=== PATIENT | male | born 1955 | race African-American/Black ===

== ENCOUNTER 2025-05-08 02:58 | Emergency (ER) | payer MEDICAID, MEDICARE ==
[~2025-05-08] VITALS: Ht 170.2 cm; Wt 80.0 kg
[2025-05-08 03:11] VITALS: TEMP 36.6; O2SAT 97
[2025-05-08 03:57] LABS: BASOPHILS % 0.3 % (0.0-2.0); EOSINOPHILS % 1.2 % (0.0-5.0); HEMATOCRIT. 42.7 % (42.0-52.0); HEMOGLOBIN. 13.7 g/dL (14.0-18.0); LYMPHOCYTES % 11.3 % (20.0-50.0); MEAN PLATELET VOLUME 7.3 fl (7.4-10.4); MONOCYTES % 12.6 % (2.0-8.0); NEUTROPHILS % 74.6 % (40.0-76.0); PLATELET 208 x1000/uL (130-400); RED BLOOD CELL COUNT 4.65 mill/uL (4.7-6.1); RED CELL DISTRIBUTION WIDTH 15.8 % (11.6-14.6)
[2025-05-08 04:10] LABS: CREATININE 1.6 mg/dL (0.6-1.3); UREA NITROGEN BLOOD 22.0 mg/dL (9-23)
[2025-05-08 04:12] LABS: TROPONIN I HIGH SENSITIVITY 26 ng/L (3.0-53)
[2025-05-08] MEDS ORDERED: NITROGLYCERIN 0.4MG TABLET SL SL NR (04:15)
[2025-05-08 04:40] VITALS: BP 154/107; PULSE 92; RESP 16; O2SAT 95
[2025-05-08] MEDS ORDERED: ASPIRIN 81MG TABLET PO NR (05:30)
== END 2025-05-08 05:26 | disposition left against medical advice (07) ==
LOC: ER 02:58 → EDBEDREQTM 05:21 → EDBEDREQ 05:21 → ER 05:26 → CMPBEDREQ 05:27
DX: R07.9 Chest pain, unspecified (principal); F14.90 Cocaine use, unspecified, uncomplicated; E78.00 Pure hypercholesterolemia, unspecified; I10 Essential (primary) hypertension; R06.02 Shortness of breath; E78.5 Hyperlipidemia, unspecified
CPT/HCPCS: 36415; 71045; 80048; 80320; 83880; 84484; 85025; 93005; 99285; G0480